=== PATIENT | female | born 1995 | race American Indian/Alaskan Native ===

== ENCOUNTER 2021-02-05 15:16 | Emergency (ER) | payer MEDICAID ==
--- NOTE | 2021-02-05 15:48 | Event Note ---
ED Screening Note Date of service: 02/05/21 Time: 15:46 ED Screening Note: Patient complains of left-sided chest pain and shortness of breath x1 week States history of asthma and that her inhaler is not helping She denies any cough/hemoptysis, leg pain/swelling, recent long travel, history of DVT/PE, or hormone use Pain worsens with deep inhalation This initial assessment/diagnostic orders/clinical plan/treatment(s) is/are subject to change based on patients health status, clinical progression and re- assessment by fellow clinical providers in the ED. Further treatment and workup at subsequent clinical providers discretion. Patient/guardian urged not to elope from the ED as their condition may be serious if not clinically assessed and managed. Initial orders include: Labs EKG Chest x-ray
[2021-02-05 15:50] VITALS: BP 131/82
[2021-02-05 16:56] LABS: Basophils # (Auto) 0.1 K/mm3 (0.0-0.1); Basophils % (Auto) 0.8 % (0.0-1.8); Eosinophils % (Auto) 0.2 % (0.0-4.3); Hematocrit 37.4 % (30.3-42.9); Hemoglobin 12.8 gm/dl (10.1-14.3); Lymphocytes # (Auto) 1.9 K/mm3 (1.2-5.4); Lymphocytes % (Auto) 28.9 % (13.4-35.0); Mean Corpuscular HGB Conc 34 % (30-34); Mean Corpuscular Volume 82 fl (79-97); Monocytes # (Auto) 0.5 K/mm3 (0.0-0.8); Monocytes % (Auto) 6.9 % (0.0-7.3); Platelet Count 288 K/mm3 (140-440); Red Blood Count 4.59 M/mm3 (3.65-5.03); Red Cell Distribution Width 13.4 % (13.2-15.2)
[2021-02-05 17:10] LABS: Alanine Aminotransferase 12 units/L (7-56); Albumin 4.8 g/dL (3.9-5); Blood Urea Nitrogen 7 mg/dL (7-17); Calcium 10.3 mg/dL (8.4-10.2); Hemolysis Index 4
[2021-02-05 17:16] LABS: BUN/Creatinine Ratio 10
--- NOTE | 2021-02-05 17:57 | XRay Report ---
CHEST 2 VIEWS INDICATION / CLINICAL INFORMATION: left sided chest pain, SOB. COMPARISON: None available. FINDINGS: SUPPORT DEVICES: None. HEART / MEDIASTINUM: No significant abnormality. LUNGS / PLEURA: No significant pulmonary or pleural abnormality. No pneumothorax. ADDITIONAL FINDINGS: No significant additional findings. IMPRESSION: 1. No acute findings. Signer Name: Colton Han MD Signed: 02/05/2021 5:53 PM Workstation Name: [id number]
--- NOTE | 2021-02-06 13:20 | Electrocardiograph Report ---
[facility] Test Date: 2021-02-05 Test Time: 15:56:46 Pat Name: THOMAS BERNSTEIN Department: Room: Gender: F [employer]: STEPHANIE : 1995 Requested By: CORTEZ HENRY Order Number: [id number] Reading MD: Sravanthi Chauhan Measurements Intervals [place] Rate: 78 P: 63 CA: 145 QRS: 54 QRSD: 74 T: 38 QT: 394 QTc: 448 Interpretive Statements Sinus rhythm No previous ECG available for comparison Electronically Signed On 02-06-2021 13:20:33 EDT by Sravanthi Chauhan
== END 2021-02-05 20:00 | disposition left against medical advice (07) ==
LOC: ED 15:16
DX: R07.9 Chest pain, unspecified (principal); Z53.21 Procedure and treatment not carried out due to patient leaving prior to being seen by health care provider
CPT/HCPCS: 36415; 71046; 80053; 84484; 84703; 85025; 93005